=== PATIENT | male | born 1980 | race Two or more races ===

== ENCOUNTER 2022-12-19 18:38 | Emergency (ER) | payer MEDICAID, OTHER ==
[~2022-12-19] VITALS: Ht 162.6 cm; Wt 75.0 kg
[2022-12-19 19:28] LABS: Urine Bacteria NONE SEEN /hpf (None Seen); Urine Blood 1+ /uL (Negative); Urine Clarity Clear (Clear); Urine Color Yellow (Yellow); Urine Mucus FEW (None Seen); Urine Protein, UAD 1+ (Negative); Urine Specific Gravity 1.012 (1.001-1.035); Urine Urobilinogen Normal (Negative); Urine WBC 1 /hpf (0 - 3); Urine pH 5.5 (5.0-8.0)
[2022-12-19] MEDS ORDERED: HYDROcodone-ACET 10/325MG TAB PO ONE (23:00)
[2022-12-19 23:01] VITALS: BP 117/69; PULSE 84; RESP 18; TEMP 98.3; O2SAT 97
[2022-12-20] MEDS ORDERED: KETOROLAC TROMETH 30 MG/ML 1ML VIAL ONE (00:33)
[2022-12-20] MEDS ORDERED: DexAMETHasone SOD PHOS 10MG/1ML VIAL INJ ONE (00:33)
[2022-12-20] MEDS ORDERED: BACITRACIN TOP OINT 1 UD PKG TOP ONE ×2 (02:34→02:45)
== END 2022-12-20 04:28 | disposition home or self-care (01) ==
LOC: ER 18:38 → EDBD 18:38 → ER 12-20 04:28
DX: S40.812A Abrasion of left upper arm, initial encounter (principal); M79.89 Other specified soft tissue disorders; M25.532 Pain in left wrist; M25.512 Pain in left shoulder; F17.210 Nicotine dependence, cigarettes, uncomplicated; F10.90 Alcohol use, unspecified, uncomplicated; V43.52XA Car driver injured in collision with other type car in traffic accident, initial encounter; Y93.89 Activity, other specified; Y92.89 Other specified places as the place of occurrence of the external cause; Y99.8 Other external cause status
CPT/HCPCS: 71045; 73000; 73060; 73090; 81001; 99284; J1100; J1885